=== PATIENT | male | born 1990 | race African-American/Black ===

== ENCOUNTER 2018-10-03 18:50 | Emergency (ER) | payer SELFPAY ==
[~2018-10-03] VITALS: Ht 180.3 cm; Wt 81.8 kg
[2018-10-03 20:40] VITALS: BP 127/70
== END 2018-10-03 21:54 | disposition home or self-care (01) ==
LOC: EMS 18:51
DX: J11.1 Influenza due to unidentified influenza virus with other respiratory manifestations (principal)

== ENCOUNTER 2023-02-08 20:07 | Emergency (ER) | payer MEDICAID ==
[~2023-02-08] VITALS: Ht 180.3 cm; Wt 86.3 kg
[2023-02-08 23:53] LABS: BASOPHILS % (AUTO) 1.8 % (0.0-2.0); EOSINOPHILS % (AUTO) 4.9 % (1.0-6.0); HEMATOCRIT 46.6 % (41-53); HEMOGLOBIN 15.9 g/dL (13.5-17.5); LYMPHOCYTES # (AUTO) 1.6 K/uL (1.0-4.8); LYMPHOCYTES % (AUTO) 41.4 % (22.0-44.0); MEAN CORPUSCULAR HEMOGLOBIN 28.7 pg (26.0-34.0); MEAN CORPUSCULAR HGB CONC 34.1 G/dL (31.0-37.0); MEAN CORPUSCULAR VOLUME 84 fL (80-100); MONOCYTES # (AUTO) 0.3 K/uL (0.1-1.0); MONOCYTES % (AUTO) 7.3 % (2.0-9.0); NEUTROPHILS # (AUTO) 1.8 K/uL (1.8-7.7); NEUTROPHILS % (AUTO) 44.6 % (40.0-70.0); PLATELET COUNT (AUTO) 238 K/uL (150-450); RED BLOOD CELL COUNT(AUTO) 5.53 MIL/uL (4.50-5.90); RED CELL DISTRIBUTION WIDTH 13.3 % (11.5-14.5)
[2023-02-08 23:58] LABS: ANION GAP 8 mmol/L (8-16); CALCIUM, TOTAL 9.7 mg/dL (8.8-10.5); CARBON DIOXIDE 30 mmol/L (22-29); CHLORIDE 103 mmol/L (98-107); CREATININE 1.23 mg/dL (0.60-1.30); GLOMERULAR FILTR. RATE CALC > 60 mL/min (>60); GLUCOSE,RANDOM 92 mg/dL (70-110); SODIUM SERUM 141 mmol/L (136-145); UREA NITROGEN, BLOOD 17 mg/dL (7-18)
[2023-02-09 00:22] LABS: CREATINE KINASE, TOTAL ONLY 214 U/L (39-308)
[2023-02-09] MEDS ORDERED: SODIUM CHLORIDE 0.9% 100 ML ONE ×2 (00:22→01:44)
[2023-02-09] MEDS ORDERED: IOHEXOL 350 MG/ML 100 ML VIAL ONE ×2 (00:22→01:44)
[2023-02-09 03:15] VITALS: BP 112/72
[2023-02-09] MEDS ORDERED: ACETAMINOPHEN/CODEINE 300-30 MG TABLET PO ONE (04:00)
[2023-02-09] MEDS ORDERED: BACLOFEN 10 MG TABLET PO ONE (04:00)
[2023-02-09] MEDS ORDERED: METH-812 PO (04:01)
[2023-02-09] MEDS ORDERED: ACET-2080 PO (04:01)
[2023-02-09] MEDS ORDERED: IBUP-1554 PO (04:01)
== END 2023-02-09 04:23 | disposition home or self-care (01) ==
LOC: EMS 20:07
DX: S13.4XXA Sprain of ligaments of cervical spine, initial encounter (principal); Z91.018 Allergy to other foods; Y93.75 Activity, martial arts; Y93.89 Activity, other specified; Y92.89 Other specified places as the place of occurrence of the external cause; Y99.8 Other external cause status
CPT/HCPCS: 99285; 80048; 82550; 85025; 36415; 72040; 72070; 70450; 70498; Q9967; J7050